=== PATIENT | female | born 1990 | race Two or more races ===

== ENCOUNTER 2018-03-23 00:04 | Emergency (ER) | payer MEDICAID ==
[~2018-03-23] VITALS: Ht 165.1 cm; Wt 75.3 kg
[~2018-03-23 00:04] MED LIST: PREN-129 PO
[2018-03-23 00:29] VITALS: BP 138/84
[2018-03-23 01:35] LABS: Basophils # (auto) 0 uL; Basophils % (auto) 0.2 % (0.0-2.0); Eosinophils # (auto) 0 uL; Eosinophils % (auto) 0.6 % (0.0-7.0); Hematocrit 39.4 % (36.0-46.0); Hemoglobin 13.4 g/dL (12.2-16.2); Lymphocytes # (auto) 1.3 uL; Lymphocytes % (auto) 20.5 % (10.0-50.0); Mean Corpuscular Hemoglobin 31.8 pg (28.0-32.0); Mean Corpuscular Hgb Conc. 34.1 g/dL (32.0-36.0); Mean Corpuscular Volume 93.3 fL (80.0-100.0); Monocytes # (auto) 0.7 uL; Monocytes % (auto) 11.6 % (0.0-12.0); Neutrophils # (auto) 4.2 uL; Neutrophils % (auto) 67.1 % (37.0-80.0); Nucleated Red Blood Cells % 0.1 %; Platelet Count (auto) 132 10^3/uL (140-450); Red Blood Cells 4.22 10^6/uL (4.0-5.20); Red Cell Distribution Width 13.2 % (11.8-14.3); White Blood Cell 6.2 10^3/uL (4.4-10.8)
[2018-03-23 01:35] LABS: Urine Bacteria FEW /hpf (None Seen); Urine Blood Negative /uL (Negative); Urine Mucus FEW (None Seen); Urine WBC 101 /hpf (0 - 5)
[2018-03-23 01:40] LABS: Albumin 2.9 g/dL (3.4-5.0); BUN/Creatinine Ratio 10.2; Calcium 8.8 mg/dL (8.5-10.1)
[2018-03-23 01:43] LABS: Bilirubin, Total 0.2 mg/dL (0.2-1.0); Total Protein 7.3 g/dL (6.4-8.2)
[2018-03-24] MEDS ORDERED: ACET1CAP14 PO (23:13)
== END 2018-03-23 04:39 | disposition left against medical advice (07) ==
LOC: ER 00:13
DX: K64.9 Unspecified hemorrhoids (principal); K62.89 Other specified diseases of anus and rectum; Z53.21 Procedure and treatment not carried out due to patient leaving prior to being seen by health care provider
CPT/HCPCS: 36415; 80053; 81001; 84702; 85025

== ENCOUNTER 2018-03-24 22:35 | Inpatient (IN) | payer MEDICAID ==
[~2018-03-24] VITALS: Ht 167.6 cm; Wt 75.3 kg
[2018-03-24] MEDS ORDERED: ACET1CAP14 PO (23:13)
[2018-03-25] MEDS ORDERED: LACT. RINGERS/OXYTOCIN 20UNITS 1,000 ML IV SCH (00:03)
[2018-03-25] MEDS ORDERED: METHYLERGONOVINE MALEATE 0.2 MG/ML AMP IM PRN (00:15)
[2018-03-25] MEDS ORDERED: PHISODERM TOP SOLN 240ML BTL TOP PRN (00:15)
[2018-03-25] MEDS ORDERED: BETAMETHASONE ACET (6MG/ML) 5ML VIAL IM ONE (00:15)
[2018-03-25] MEDS ORDERED: DERMOPLAST 60ML BOTTLE TOP PRN (00:15)
[2018-03-25] MEDS ORDERED: LIDOCAINE 2% (LOCAL ANESTH.) PF 5ml SDV ID ONE (00:15)
[2018-03-25] MEDS ORDERED: WITCH HAZEL-GLYCERIN PAD TOP PRN (00:15)
[2018-03-25] MEDS ORDERED: NALBUPHINE HCL 10 MG/1ml INJECTION IV PRN (00:15)
[2018-03-25] MEDS ORDERED: AMPICILLIN SOD 2GM INJ 2 GM in SODIUM CHL 0.9% 100 ML IV ONE (00:15)
[2018-03-25] MEDS ORDERED: BETAMETHASONE ACET (6MG/ML) 5ML VIAL ONE (00:27)
[2018-03-25] MEDS ORDERED: GENTAMICIN SULF 80 MG/2 ML VIAL ONE (00:30)
[2018-03-25] MEDS ORDERED: ACETAMINOPHEN 325 MG TAB PO PRN ×2 (00:30→12:00)
[2018-03-25] MEDS ORDERED: GENTAMICIN 80 MG IV ONE (00:30)
[2018-03-25] MEDS: LACTATED RINGER'S 1,000 ML IV SCH ×3 (00:36→16:03)
[2018-03-25] MEDS: AMPICILLIN SOD 1 GM VL ONE ×2 (00:36→01:11)
[2018-03-25 00:51] LABS: Basophils # (auto) 0 uL; Basophils % (auto) 0.2 % (0.0-2.0); Eosinophils # (auto) 0 uL; Eosinophils % (auto) 0.4 % (0.0-7.0); Hematocrit 40.2 % (36.0-46.0); Hemoglobin 13.7 g/dL (12.2-16.2); Lymphocytes # (auto) 1.8 uL; Lymphocytes % (auto) 22.9 % (10.0-50.0); Mean Corpuscular Hemoglobin 31.4 pg (28.0-32.0); Mean Corpuscular Volume 92.4 fL (80.0-100.0); Monocytes # (auto) 0.6 uL; Monocytes % (auto) 7.6 % (0.0-12.0); Neutrophils # (auto) 5.3 uL; Neutrophils % (auto) 68.9 % (37.0-80.0); Platelet Count (auto) 137 10^3/uL (140-450); Red Blood Cells 4.35 10^6/uL (4.0-5.20); White Blood Cell 7.8 10^3/uL (4.4-10.8)
[2018-03-25 00:56] LABS: INR 0.88 (0.9-1.15); Partial Thromboplastin Time 28.4 sec (23.78-33.04); Prothrombin Time 9.5 sec (9.27-12.13)
[2018-03-25 00:59] LABS: Albumin 2.9 g/dL (3.4-5.0); Calcium 9.1 mg/dL (8.5-10.1); Potassium 3.9 mmol/L (3.5-5.1)
[2018-03-25 01:02] LABS: BUN/Creatinine Ratio 12.5
[2018-03-25 01:23] LABS: Bilirubin, Total 0.3 mg/dL (0.2-1.0); Total Protein 7.2 g/dL (6.4-8.2)
[2018-03-25] MEDS: GENTAMICIN SULFATE 80 MG in D5W 5% 100 ML IV SCH ×2 (02:06→10:00)
[2018-03-25 02:16] LABS: Urine Bacteria FEW /hpf (None Seen); Urine Blood Negative /uL (Negative); Urine Mucus FEW (None Seen); Urine Specific Gravity 1.025 (1.001-1.035); Urine WBC 13 /hpf (0 - 5)
[2018-03-25 02:35] LABS: Alcohol, Urine < 3.0 mg/dL (0-5); Amphetamine Screen, Urine NEGATIVE (NEGATIVE); Barbiturate Scree,Urine NEGATIVE (NEGATIVE); Benzodiazephine Screen, Urine NEGATIVE (NEGATIVE); Cannabinoid Screen, Urine NEGATIVE (NEGATIVE); Cocaine Screen, Urine NEGATIVE (NEGATIVE); Opiate Scree,Urine NEGATIVE (NEGATIVE); Phencyclidine Screen, Urine NEGATIVE (NEGATIVE)
[2018-03-25] MEDS: AMPICILLIN INJ 1 GM in SODIUM CHL 0.9% 50 ML IV SCH ×3 (07:00→23:00)
[2018-03-25] MEDS ORDERED: PROMETHAZINE HCL 25 MG/ML 1ML ONE (09:35)
[2018-03-25] MEDS ORDERED: GENTAMICIN 80 MG IV SCH (10:00)
[2018-03-25] MEDS ORDERED: LACT. RINGERS/OXYTOCIN 20UNITS 500 ML IV ONE (11:57)
[2018-03-25 16:00] VITALS: BP 115/65
[2018-03-25] MEDS: IBUPROFEN 600 MG TAB PO PRN ×2 (17:13→22:59)
[2018-03-25 19:27] VITALS: BP 102/54
[2018-03-25 23:10] VITALS: BP 107/63
[2018-03-26] MEDS ORDERED: BETAMETHASONE ACET (6MG/ML) 5ML VIAL IM ONE (00:40)
[2018-03-26 03:01] VITALS: BP 110/56
[2018-03-26 06:06] LABS: RPR Non Reactive (Non Reactive)
[2018-03-26] MEDS: AMPICILLIN INJ 1 GM in SODIUM CHL 0.9% 50 ML IV SCH ×3 (06:10)
[2018-03-26 07:00] VITALS: BP 97/54
[2018-03-26] MEDS: DOCUSATE SOD 100 MG CAP PO SCH ×2 (10:28→22:12)
[2018-03-26 11:00] VITALS: BP 103/53
[2018-03-26 15:00] VITALS: BP 90/53
[2018-03-26 18:56] VITALS: BP 123/65
[2018-03-26 22:40] VITALS: BP 102/51
[2018-03-27 02:40] VITALS: BP 99/53
[2018-03-27 07:14] VITALS: BP 106/55
[2018-03-27 11:00] VITALS: BP_SYST 107; BP_SYST 118; BP_DIAS 61; BP_DIAS 74
[2018-03-27 15:00] VITALS: BP 107/61
== END 2018-03-27 17:10 | disposition home or self-care (01) | DRG 560 ==
LOC: LDRP 22:35 → OBSVTOIN 22:35 → LDRP 03-25 08:29
PROVIDERS: ADMIT Obstetrics & Gynecology; ATTEND Obstetrics & Gynecology
PROC: 10E0XZZ Delivery of Products of Conception, External Approach (ICD-10-PCS; principal; 2018-03-25)
PROC: 0UQMXZZ Repair Vulva, External Approach (ICD-10-PCS; 2018-03-25)
DX: O42.92 Full-term premature rupture of membranes, unspecified as to length of time between rupture and onset of labor (principal); O69.81X0 Labor and delivery complicated by cord around neck, without compression, not applicable or unspecified; Z53.20 Procedure and treatment not carried out because of patient's decision for unspecified reasons; O71.82 Other specified trauma to perineum and vulva; Z37.0 Single live birth; Z3A.37 37 weeks gestation of pregnancy
CPT/HCPCS: 36415; 59025; 59409; 76805; 76818; 80053; 80170; 80307; 81001; 81002; 85025; 85610; 85730; 86592; 86850; 86900; 86901; 96365; 96366; 96372; G0378; J2590; J7060

== ENCOUNTER 2020-01-16 09:13 | Observation (INO) | payer MEDICAID ==
[~2020-01-16 09:13] MED LIST changes: +ACET1CAP14 PO
== END 2020-01-16 10:47 | disposition home or self-care (01) | DRG 861 ==
LOC: LDRP 09:13
PROVIDERS: ADMIT Specialist; ATTEND Specialist
DX: Z34.93 Encounter for supervision of normal pregnancy, unspecified, third trimester (principal); Z3A.37 37 weeks gestation of pregnancy
CPT/HCPCS: 59025; 76818; 81002; G0378

== ENCOUNTER 2020-01-23 10:16 | Observation (INO) | payer MEDICAID ==
[~2020-01-23 10:16] MED LIST changes: -ACET1CAP14 PO
== END 2020-01-23 11:35 | disposition home or self-care (01) | DRG 566 ==
LOC: LDRP 10:16
PROVIDERS: ADMIT Specialist; ATTEND Specialist
DX: O62.9 Abnormality of forces of labor, unspecified (principal); Z3A.38 38 weeks gestation of pregnancy; Z91.19 Patient's noncompliance with other medical treatment and regimen
CPT/HCPCS: 59025; 76818; 81002; G0378

== ENCOUNTER 2020-01-29 08:00 | Inpatient (IN) | payer MEDICAID ==
[~2020-01-29] VITALS: Ht 167.6 cm; Wt 78.9 kg
[2020-01-29 09:13] LABS: Urine Bacteria NONE SEEN /hpf (None Seen); Urine Blood Negative /uL (Negative); Urine Hyaline Cast FEW /lpf (0 - 2); Urine Mucus FEW (None Seen); Urine Specific Gravity 1.027 (1.001-1.035); Urine WBC 1 /hpf (0 - 5)
[2020-01-29] MEDS ORDERED: LACT. RINGERS/OXYTOCIN 20UNITS 1,000 ML IV SCH (09:19)
[2020-01-29] MEDS ORDERED: LACTATED RINGER'S 1,000 ML IV SCH (09:19)
[2020-01-29 09:26] LABS: Alcohol, Urine < 3.0 mg/dL (0-5); Amphetamine Screen, Urine NEGATIVE (NEGATIVE); Barbiturate Scree,Urine NEGATIVE (NEGATIVE); Benzodiazephine Screen, Urine NEGATIVE (NEGATIVE); Cannabinoid Screen, Urine NEGATIVE (NEGATIVE); Cocaine Screen, Urine NEGATIVE (NEGATIVE); Opiate Scree,Urine NEGATIVE (NEGATIVE); Phencyclidine Screen, Urine NEGATIVE (NEGATIVE)
[2020-01-29] MEDS ORDERED: LIDOCAINE 2%HCL (LOCAL ANESTH.) INJ 20ML MDV ID ONE (09:30)
[2020-01-29] MEDS ORDERED: DERMOPLAST 60ML BOTTLE TOP PRN (09:30)
[2020-01-29] MEDS ORDERED: METHYLERGONOVINE MALEATE 0.2 MG/ML AMP IM PRN (09:30)
[2020-01-29] MEDS ORDERED: PHISODERM TOP SOLN 240ML BTL TOP PRN (09:30)
[2020-01-29] MEDS ORDERED: WITCH HAZEL-GLYCERIN PAD TOP PRN (09:30)
[2020-01-29 09:50] LABS: Basophils # (auto) 0 10 ^3/uL (0-0.2); Basophils % (auto) 0.4 % (0.0-2.0); Eosinophils # (auto) 0 10 ^3/uL (0-0.8); Eosinophils % (auto) 0.2 % (0.0-7.0); Hematocrit 39.6 % (36.0-46.0); Hemoglobin 13.4 g/dL (12.2-16.2); Lymphocytes # (auto) 1.3 10 ^3/uL (0.4-5.4); Lymphocytes % (auto) 11.9 % (10.0-50.0); Mean Corpuscular Hemoglobin 31.8 pg (28.0-32.0); Mean Corpuscular Volume 93.5 fL (80.0-100.0); Monocytes # (auto) 0.7 10 ^3/uL (0-1.3); Monocytes % (auto) 6.1 % (0.0-12.0); Neutrophils # (auto) 8.8 10 ^3/uL (1.6-8.6); Neutrophils % (auto) 81.4 % (37.0-80.0); Platelet Count (auto) 125 10^3/uL (140-450); Red Blood Cells 4.23 10^6/uL (4.0-5.20); Red Cell Distribution Width 13.2 % (11.8-14.3); White Blood Cell 10.8 10^3/uL (4.4-10.8)
[2020-01-29 10:08] LABS: Albumin 2.8 g/dL (3.4-5.0); Calcium 8.6 mg/dL (8.5-10.1)
[2020-01-29 10:11] LABS: Bilirubin, Total 0.3 mg/dL (0.2-1.0); Total Protein 6.8 g/dL (6.4-8.2)
[2020-01-29 10:18] LABS: INR 0.94 (0.9-1.15); Partial Thromboplastin Time 29.3 sec (23.64-32.05)
[2020-01-29] MEDS: IBUPROFEN 600 MG TAB PO PRN ×2 (12:52→18:26)
[2020-01-29 13:58] VITALS: BP 118/57
--- NOTE | 2020-01-29 13:58 | NUR ---
Ambulation: Patient OOB with standby assistance by RN. Patient ambulated to bathroom with steady gait. Patient able to void without difficulty, 300ml. [facility]icare teaching provided with returned demonstration by patient. Clean gown provided and bed linen changed. Patient ambulated back to bed with steady gait with no distress noted.
[2020-01-29 15:17] VITALS: BP 125/69
[2020-01-29 19:20] VITALS: BP 124/57
[2020-01-29 23:02] VITALS: BP 114/61
[2020-01-30 03:08] VITALS: BP 114/56
[2020-01-30 04:07] LABS: RPR Non Reactive (Non Reactive)
[2020-01-30 07:16] VITALS: BP 100/54
[2020-01-30 11:00] VITALS: BP 119/59
--- NOTE | 2020-01-30 14:01 | NUR ---
TIME WAS 1350 NOT 0150 Signed: 01/30/20 at 1402 by [facility] <Co-Signature Required> Co-Signed: 01/30/20 at 1402 by Esteban Garcia RN Addendum: 01/30/20 at 1403 by [facility] Amended: Links added.
[2020-01-30 14:12] VITALS: BP 111/68
--- NOTE | 2020-01-30 15:05 | NUR ---
Discharge: Discharge instructions given as ordered. Pt encouraged to follow up with [facility] as instructed. All questions and concerns addressed. Patient verbalized understanding. Medication reconciliation completed and copy given to patient. Patient encouraged to prepare to depart unit. Discharge: Patient taken to vehicle via wheelchair with all personal belongings, accompanied by staff and family member. No distress noted at time of departure, no adverse changes in status since initial assessment.
== END 2020-01-30 15:05 | disposition home or self-care (01) | DRG 560 ==
LOC: LDRP 08:00 → OBSVTOIN 09:10 → LDRP 10:47
PROVIDERS: ADMIT Obstetrics & Gynecology; ATTEND Obstetrics & Gynecology
PROC: 10E0XZZ Delivery of Products of Conception, External Approach (ICD-10-PCS; principal; 2020-01-29)
DX: O80 Encounter for full-term uncomplicated delivery (principal); Z37.0 Single live birth; Z3A.39 39 weeks gestation of pregnancy
CPT/HCPCS: 36415; 59409; 80053; 80307; 81001; 84112; 85025; 85610; 85730; 86592; 86850; 86900; 86901; 96365; 96366; 96372; G0378; J2590

== ENCOUNTER → 2021-05-19 | Outpatient (CLI) | payer MEDICAID ==
[2021-05-20 07:07] LABS: RPR Non Reactive (Non Reactive)
== END | disposition home or self-care (01) ==
LOC: LAB 12:20
PROVIDERS: ATTEND Obstetrics & Gynecology
DX: Z34.80 Encounter for supervision of other normal pregnancy, unspecified trimester (principal); Z3A.00 Weeks of gestation of pregnancy not specified
CPT/HCPCS: 84112; 86592

== ENCOUNTER → 2021-11-03 | Outpatient (CLI) | payer MEDICAID ==
[2021-11-03 11:33] LABS: Basophils # (auto) 0 10 ^3/uL (0-0.2); Basophils % (auto) 0.3 % (0.0-2.0); Eosinophils # (auto) 0.1 10 ^3/uL (0-0.8); Eosinophils % (auto) 0.9 % (0.0-7.0); Hematocrit 37.2 % (36.0-46.0); Lymphocytes # (auto) 1.6 10 ^3/uL (0.4-5.4); Lymphocytes % (auto) 25.2 % (10.0-50.0); Mean Corpuscular Hemoglobin 31.8 pg (28.0-32.0); Mean Corpuscular Hgb Conc. 34.8 g/dL (32.0-36.0); Mean Corpuscular Volume 91.3 fL (80.0-100.0); Monocytes # (auto) 0.3 10 ^3/uL (0-1.3); Monocytes % (auto) 5.5 % (0.0-12.0); Neutrophils # (auto) 4.2 10 ^3/uL (1.6-8.6); Neutrophils % (auto) 68.1 % (37.0-80.0); Nucleated Red Blood Cells % 0.1 %; Red Blood Cells 4.08 10^6/uL (4.0-5.20); Red Cell Distribution Width 12.9 % (11.8-14.3); White Blood Cell 6.2 10^3/uL (4.4-10.8)
[2021-11-04 06:06] LABS: RPR Non Reactive (Non Reactive)
== END | disposition home or self-care (01) ==
LOC: LAB 11:01
PROVIDERS: ATTEND Obstetrics & Gynecology
DX: Z34.80 Encounter for supervision of other normal pregnancy, unspecified trimester (principal)
CPT/HCPCS: 36415; 84112; 85025; 86592

== ENCOUNTER 2021-12-02 11:44 | Observation (INO) | payer MEDICAID | END 2021-12-02 13:03 | disposition home or self-care (01) | LOC: LDRP 11:44 | PROVIDERS: ADMIT Obstetrics & Gynecology; ATTEND Obstetrics & Gynecology | DX: O26.853 Spotting complicating pregnancy, third trimester (principal); O62.9 Abnormality of forces of labor, unspecified; Z3A.39 39 weeks gestation of pregnancy | CPT/HCPCS: 59025; 81002; G0378 ==

== ENCOUNTER 2021-12-03 06:10 | Inpatient (IN) | payer MEDICAID ==
[2021-12-03] VITALS (8 sets, daily range): BP systolic 109–125; BP diastolic 58–66
[~2021-12-03] VITALS: Ht 167.6 cm; Wt 79.8 kg
[2021-12-03] MEDS ORDERED: PROMETHAZINE HCL 25 MG/ML 1ML IV PRN (06:30)
[2021-12-03] MEDS ORDERED: TERBUTALINE SULFATE 1 MG/ML 1ML VIAL SC PRN (06:30)
[2021-12-03] MEDS ORDERED: miSOPROStol 100 mcg TAB SL PRN (06:30)
[2021-12-03] MEDS ORDERED: WITCH HAZEL-GLYCERIN PAD TOP PRN (06:30)
[2021-12-03] MEDS ORDERED: METHYLERGONOVINE MALEATE 0.2 MG/ML AMP IM PRN (06:30)
[2021-12-03] MEDS ORDERED: LACT. RINGERS/OXYTOCIN 20UNITS 1,000 ML IV SCH (06:30)
[2021-12-03] MEDS ORDERED: DERMOPLAST 60ML BOTTLE TOP PRN (06:30)
[2021-12-03] MEDS ORDERED: BUTORPHANOL TARTRATE 2 MG/1 ML VIAL IV PRN ×2 (06:30)
[2021-12-03] MEDS ORDERED: PHISODERM TOP SOLN 240ML BTL TOP PRN (06:30)
[2021-12-03] MEDS ORDERED: LACT. RINGERS/OXYTOCIN 20UNITS 500 ML IV ONE ×2 (06:30→07:00)
[2021-12-03] MEDS ORDERED: LACTATED RINGER'S 1,000 ML IV SCH (06:30)
[2021-12-03] MEDS ORDERED: miSOPROStol 100 mcg TAB PR PRN (06:30)
[2021-12-03] MEDS ORDERED: LIDOCAINE 2%HCL (LOCAL ANESTH.) INJ 20ML MDV IJ PRN (06:30)
[2021-12-03 07:08] LABS: INR 0.94 (0.9-1.15); Partial Thromboplastin Time 29.3 sec (23.6-33.0)
[2021-12-03 07:17] LABS: Basophils # (auto) 0 10 ^3/uL (0-0.2); Basophils % (auto) 0.1 % (0.0-2.0); Eosinophils # (auto) 0 10 ^3/uL (0-0.8); Eosinophils % (auto) 0.1 % (0.0-7.0); Hematocrit 41.2 % (36.0-46.0); Hemoglobin 13.9 g/dL (12.2-16.2); Lymphocytes # (auto) 1.4 10 ^3/uL (0.4-5.4); Lymphocytes % (auto) 15.8 % (10.0-50.0); Mean Corpuscular Hgb Conc. 33.7 g/dL (32.0-36.0); Mean Corpuscular Volume 92.2 fL (80.0-100.0); Monocytes # (auto) 0.3 10 ^3/uL (0-1.3); Monocytes % (auto) 3.1 % (0.0-12.0); Neutrophils % (auto) 80.9 % (37.0-80.0); Nucleated Red Blood Cells % 0.1 %; Red Blood Cells 4.47 10^6/uL (4.0-5.20); Red Cell Distribution Width 13.1 % (11.8-14.3); White Blood Cell 8.7 10^3/uL (4.4-10.8)
[2021-12-03 07:26] LABS: Potassium 3.6 mmol/L (3.5-5.1)
[2021-12-03 07:30] LABS: Urine Bacteria NONE SEEN /hpf (None Seen); Urine Blood TRACE /uL (Negative); Urine Mucus FEW (None Seen); Urine Specific Gravity 1.026 (1.001-1.035); Urine WBC 3 /hpf (0 - 5)
[2021-12-03 07:34] LABS: Bilirubin, Total 0.3 mg/dL (0.2-1.0)
[2021-12-03 07:34] LABS: Amphetamine Screen, Urine NEGATIVE (NEGATIVE); Barbiturate Scree,Urine NEGATIVE (NEGATIVE); Benzodiazephine Screen, Urine NEGATIVE (NEGATIVE); Cannabinoid Screen, Urine NEGATIVE (NEGATIVE); Cocaine Screen, Urine NEGATIVE (NEGATIVE); Opiate Scree,Urine NEGATIVE (NEGATIVE); Phencyclidine Screen, Urine NEGATIVE (NEGATIVE)
[2021-12-03] MEDS ORDERED: ACETAMINOPHEN 325 MG TAB PO PRN (10:15)
[2021-12-03] MEDS ORDERED: ONDANSETRON ODT 4 MG TAB PO PRN (10:15)
[2021-12-03] MEDS: IBUPROFEN 600 MG TAB PO PRN ×2 (10:34→22:05)
[2021-12-03] MEDS ORDERED: IBUPROFEN 800 MG TAB PO SCH (12:00)
[2021-12-04 03:30] VITALS: BP 121/75
[2021-12-04 07:07] LABS: RPR Non Reactive (Non Reactive)
[2021-12-04 11:00] VITALS: BP 114/98
== END 2021-12-04 12:23 | disposition home or self-care (01) | DRG 560 ==
LOC: UNDOADMOB 06:10 → LDRP 06:10 → INTOOBSV 06:20 → OBSVTOIN 06:20 → UNDODISIN 12-04 12:23 → EDSTATUS 01-14 15:16
PROVIDERS: ADMIT Obstetrics & Gynecology; ATTEND Obstetrics & Gynecology
PROC: 10E0XZZ Delivery of Products of Conception, External Approach (ICD-10-PCS; principal; 2021-12-03)
DX: O69.81X0 Labor and delivery complicated by cord around neck, without compression, not applicable or unspecified (principal); Z37.0 Single live birth; Z20.822 Contact with and (suspected) exposure to COVID-19; Z3A.40 40 weeks gestation of pregnancy
CPT/HCPCS: 36415; 59025; 59409; 80053; 80307; 81001; 85025; 85610; 85730; 86592; 86850; 86900; 86901; 94760; 96360; G0378; J2590

== ENCOUNTER → 2023-10-04 | Outpatient (CLI) | payer MEDICAID ==
[2023-10-04 12:14] LABS: Basophils # (auto) 0 10 ^3/uL (0-0.2); Basophils % (auto) 0.1 % (0.0-2.0); Eosinophils # (auto) 0.1 10 ^3/uL (0-0.8); Eosinophils % (auto) 0.9 % (0.0-7.0); Hematocrit 37.9 % (36.0-46.0); Hemoglobin 12.7 g/dL (12.2-16.2); Lymphocytes # (auto) 1.3 10 ^3/uL (0.4-5.4); Mean Corpuscular Hemoglobin 29.8 pg (28.0-32.0); Mean Corpuscular Hgb Conc. 33.4 g/dL (32.0-36.0); Monocytes # (auto) 0.4 10 ^3/uL (0-1.3); Monocytes % (auto) 6.2 % (0.0-12.0); Neutrophils # (auto) 4.3 10 ^3/uL (1.6-8.6); Neutrophils % (auto) 70.8 % (37.0-80.0); Nucleated Red Blood Cells % 0.1 %; Red Blood Cells 4.26 10^6/uL (4.0-5.20); Red Cell Distribution Width 13.1 % (11.8-14.3); White Blood Cell 6.1 10^3/uL (4.4-10.8)
[2023-10-04 13:42] LABS: Amphetamine Screen, Urine Neg (NEGATIVE)
[2023-10-04 13:43] LABS: Barbiturate Scree,Urine Neg (NEGATIVE); Benzodiazephine Screen, Urine Neg (NEGATIVE); Cannabinoid Screen, Urine Neg (NEGATIVE); Cocaine Screen, Urine Neg (NEGATIVE); Opiate Scree,Urine Neg (NEGATIVE); Phencyclidine Screen, Urine Neg (NEGATIVE)
[2023-10-05 07:08] LABS: RPR Non Reactive (Non Reactive)
[2023-10-05 10:07] LABS: Treponema Pallidum Ab LC Non Reactive (Non Reactive)
[2023-10-05 22:06] LABS: Chlamydia Trachomatis, NAA Negative (Negative); Neisseria gonorrhoeae, NAA Negative (Negative)
== END | disposition home or self-care (01) ==
LOC: LAB 11:38
PROVIDERS: ATTEND Obstetrics & Gynecology
DX: Z34.00 Encounter for supervision of normal first pregnancy, unspecified trimester (principal); Z31.430 Encounter of female for testing for genetic disease carrier status for procreative management; Z20.9 Contact with and (suspected) exposure to unspecified communicable disease; N39.0 Urinary tract infection, site not specified; Z3A.00 Weeks of gestation of pregnancy not specified
CPT/HCPCS: 36415; 80307; 83036; 84112; 84144; 84702; 85025; 86592; 86703; 86762; 86850; 86900; 86901; 87086; 87340

== ENCOUNTER → 2023-11-16 | Outpatient (CLI) | payer MEDICAID ==
[2023-11-16 10:33] LABS: Basophils # (auto) 0 10 ^3/uL (0-0.2); Basophils % (auto) 0.2 % (0.0-2.0); Eosinophils # (auto) 0.1 10 ^3/uL (0-0.8); Eosinophils % (auto) 1.7 % (0.0-7.0); Hematocrit 35.4 % (36.0-46.0); Lymphocytes # (auto) 1.7 10 ^3/uL (0.4-5.4); Mean Corpuscular Hemoglobin 30.9 pg (28.0-32.0); Mean Corpuscular Hgb Conc. 33.8 g/dL (32.0-36.0); Mean Corpuscular Volume 91.4 fL (80.0-100.0); Monocytes # (auto) 0.5 10 ^3/uL (0-1.3); Monocytes % (auto) 8.7 % (0.0-12.0); Neutrophils # (auto) 3.7 10 ^3/uL (1.6-8.6); Neutrophils % (auto) 61.4 % (37.0-80.0); Nucleated Red Blood Cells % 0.1 %; Red Blood Cells 3.87 10^6/uL (4.0-5.20); Red Cell Distribution Width 13.4 % (11.8-14.3); White Blood Cell 6.1 10^3/uL (4.4-10.8)
== END | disposition home or self-care (01) ==
LOC: LAB 10:11
PROVIDERS: ATTEND Obstetrics & Gynecology
DX: O99.810 Abnormal glucose complicating pregnancy (principal); Z3A.00 Weeks of gestation of pregnancy not specified
CPT/HCPCS: 36415; 82951; 83036; 85025

== ENCOUNTER 2024-02-21 19:45 | Observation (INO) | payer MEDICAID ==
[2024-02-21] MEDS ORDERED: CEPH250C PO (20:57)
== END 2024-02-21 21:21 | disposition home or self-care (01) ==
LOC: LDRP 19:45
PROVIDERS: ADMIT Obstetrics & Gynecology; ATTEND Obstetrics & Gynecology
DX: O23.43 Unspecified infection of urinary tract in pregnancy, third trimester (principal); O40.3XX0 Polyhydramnios, third trimester, not applicable or unspecified; Z3A.37 37 weeks gestation of pregnancy
CPT/HCPCS: 59025; 76818; 81002; 94760; G0378

== ENCOUNTER 2024-02-29 08:20 | Observation (INO) | payer MEDICAID ==
[~2024-02-29] VITALS: Ht 167.6 cm; Wt 88.0 kg
[~2024-02-29 08:20] MED LIST changes: +CEPH250C PO
== END 2024-02-29 09:59 | disposition home or self-care (01) ==
LOC: LDRP 08:20 → UNDOADMOB 08:20 → LDRP 08:22 → UNDODISOB 09:59
PROVIDERS: ADMIT Obstetrics & Gynecology; ATTEND Obstetrics & Gynecology
DX: O40.3XX0 Polyhydramnios, third trimester, not applicable or unspecified (principal); Z3A.38 38 weeks gestation of pregnancy
CPT/HCPCS: 59025; 76818; 81002; 94760; G0378

== ENCOUNTER 2024-03-03 08:14 | Observation (INO) | payer MEDICAID | END 2024-03-03 10:28 | disposition home or self-care (01) | LOC: LDRP 08:14 | PROVIDERS: ADMIT Obstetrics & Gynecology; ATTEND Obstetrics & Gynecology | DX: O40.3XX0 Polyhydramnios, third trimester, not applicable or unspecified (principal); Z3A.39 39 weeks gestation of pregnancy | CPT/HCPCS: 59025; 76818; 81002; 94760; G0378 ==

== ENCOUNTER 2024-03-04 22:10 | Inpatient (IN) | payer MEDICAID ==
[~2024-03-04] VITALS: Ht 167.6 cm; Wt 88.0 kg
[2024-03-04] MEDS ORDERED: LIDOCAINE 2%HCL (LOCAL ANESTH.) INJ 20ML MDV IJ PRN (22:15)
[2024-03-04] MEDS ORDERED: BUTORPHANOL TARTRATE 2 MG/1 ML VIAL IV PRN (22:15)
[2024-03-04 22:36] LABS: Urine Bacteria None Seen /hpf (None Seen); Urine WBC None Seen /hpf (0 - 5)
[2024-03-04 22:47] LABS: Urine Blood Negative /uL (Negative); Urine Clarity Clear (Clear); Urine Color Yellow (Yellow); Urine Protein, UAD TRACE (Negative); Urine Specific Gravity 1.028 (1.001-1.035); Urine Urobilinogen 2 mg/dL (Negative)
[2024-03-04 22:49] LABS: Basophils # (auto) 0 10 ^3/uL (0-0.2); Basophils % (auto) 0.3 % (0.0-2.0); Eosinophils # (auto) 0.1 10 ^3/uL (0-0.8); Eosinophils % (auto) 0.9 % (0.0-7.0); Hematocrit 40.5 % (36.0-46.0); Hemoglobin 13.6 g/dL (12.2-16.2); Lymphocytes # (auto) 2.4 10 ^3/uL (0.4-5.4); Lymphocytes % (auto) 34.7 % (10.0-50.0); Mean Corpuscular Hemoglobin 31.3 pg (28.0-32.0); Mean Corpuscular Hgb Conc. 33.5 g/dL (32.0-36.0); Mean Corpuscular Volume 93.5 fL (80.0-100.0); Monocytes # (auto) 0.6 10 ^3/uL (0-1.3); Monocytes % (auto) 8.6 % (0.0-12.0); Neutrophils # (auto) 3.9 10 ^3/uL (1.6-8.6); Neutrophils % (auto) 55.5 % (37.0-80.0); Nucleated Red Blood Cells % 0.2 %; Red Blood Cells 4.34 10^6/uL (4.0-5.20); Red Cell Distribution Width 13.5 % (11.8-14.3)
[2024-03-04 23:04] LABS: Albumin 3.9 g/dL (3.2-4.8); Alkaline Phosphatase 144 U/L (46-116); Anion Gap 8 (5-15); Aspartate Aminotransferase 19 U/L (13-40); BUN/Creatinine Ratio 7.7 (10.0-20.0); Blood Urea Nitrogen 5 mg/dL (9-23); Calcium 9.4 mg/dL (8.5-10.1); Carbon Dioxide 24 mmol/L (20-30); Chloride 106 mmol/L (98-107); Glucose 87 mg/dL (74-106); Potassium 3.5 mmol/L (3.5-5.1); Sodium 138 mmol/L (136-145)
[2024-03-04 23:05] LABS: Bilirubin, Total 0.4 mg/dL (0.2-1.0); Total Protein 6.6 g/dL (5.7-8.2)
[2024-03-04 23:08] LABS: Alanine Aminotransferase < 9 U/L (7-40)
[2024-03-04 23:09] LABS: INR 0.94 (0.9-1.15); Partial Thromboplastin Time 27.2 SEC (24.5-34.5)
[2024-03-04] MEDS: LACTATED RINGER'S 1,000 ML IV SCH (23:11)
[2024-03-04 23:19] LABS: Amphetamine Screen, Urine Neg (NEGATIVE); Barbiturate Scree,Urine Neg (NEGATIVE); Benzodiazephine Screen, Urine Neg (NEGATIVE); Cocaine Screen, Urine Neg (NEGATIVE); Opiate Scree,Urine Neg (NEGATIVE); Phencyclidine Screen, Urine Neg (NEGATIVE)
[2024-03-04 23:34] LABS: Giant Platelets Few; Platelet Estimate Decreased
[2024-03-04 23:56] LABS: Cannabinoid Screen, Urine Neg (NEGATIVE)
[2024-03-05] MEDS: CARBOPROST TROMETHAMINE 250 MCG/1ML VIAL IM ONE (04:15)
[2024-03-05] MEDS ORDERED: DIPHENOXYLATE W/ATROPINE 2.5 MG TAB PO PRN (04:15)
[2024-03-05] MEDS: miSOPROStol 50 MCG per PRE-CUT 1/2 TAB PO PRN (04:35)
[2024-03-05] MEDS: DERMOPLAST 60ML BOTTLE TOP PRN (08:39)
[2024-03-05] MEDS: WITCH HAZEL-GLYCERIN PAD TOP PRN (08:39)
[2024-03-05] MEDS: PHISODERM TOP SOLN 240ML BTL TOP PRN (08:40)
[2024-03-05] MEDS ORDERED: TERBUTALINE SULFATE 1 MG/ML 1ML VIAL SC PRN (19:30)
[2024-03-05] MEDS: LACT. RINGERS/OXYTOCIN 20UNITS 1,000 ML IV SCH (20:21)
[2024-03-06] MEDS: BUTORPHANOL TARTRATE 2 MG/1 ML VIAL IV PRN (03:39)
[2024-03-06] MEDS: LACT. RINGERS/OXYTOCIN 20UNITS 500 ML IV ONE ×4 (06:05→07:00)
[2024-03-06] MEDS: METHYLERGONOVINE MALEATE 0.2 MG/ML AMP IM ONE ×2 (06:06→06:30)
[2024-03-06] MEDS ORDERED: ACETAMINOPHEN 325 MG TAB PO PRN (06:15)
[2024-03-06] MEDS ORDERED: ONDANSETRON ODT 4 MG TAB PO PRN (06:30)
[2024-03-06] MEDS: IBUPROFEN 600 MG TAB PO PRN (07:31)
[2024-03-06 11:22] VITALS: BP 115/62; PULSE 93; RESP 18; TEMP 97.9; O2SAT 95
[2024-03-06] MEDS ORDERED: IBUPROFEN 800 MG TAB PO SCH (12:00)
[2024-03-06] MEDS: ACETAMINOPHEN 325 MG TAB PO PRN (13:22)
[2024-03-06 14:43] VITALS: BP 97/51; PULSE 91; RESP 18; TEMP 98; O2SAT 97
[2024-03-06 19:30] VITALS: BP 114/58; PULSE 103; RESP 18; TEMP 97.8; O2SAT 98
[2024-03-06] MEDS: DOCUSATE SOD 100 MG CAP PO SCH (21:53)
[2024-03-06] MEDS ORDERED: IBU600T PO (22:44)
[2024-03-06] MEDS ORDERED: DOCU-265 PO (22:44)
[2024-03-06] MEDS ORDERED: PREN-129 PO (22:44)
[2024-03-06 23:00] VITALS: BP 116/64; PULSE 110; RESP 20; TEMP 97.8; O2SAT 97
[2024-03-07 03:00] VITALS: BP 91/55; PULSE 86; RESP 16; TEMP 98.8; O2SAT 97
[2024-03-07 04:06] LABS: RPR Non Reactive (Non Reactive)
[2024-03-07 07:00] VITALS: BP 100/52; PULSE 96; RESP 16; TEMP 97.6; O2SAT 97
[2024-03-07 07:45] LABS: Basophils # (auto) 0 10 ^3/uL (0-0.2); Basophils % (auto) 0.3 % (0.0-2.0); Eosinophils # (auto) 0.1 10 ^3/uL (0-0.8); Eosinophils % (auto) 0.7 % (0.0-7.0); Hematocrit 30.2 % (36.0-46.0); Lymphocytes # (auto) 2.5 10 ^3/uL (0.4-5.4); Lymphocytes % (auto) 27.7 % (10.0-50.0); Mean Corpuscular Hgb Conc. 33.2 g/dL (32.0-36.0); Mean Corpuscular Volume 93.3 fL (80.0-100.0); Monocytes # (auto) 0.8 10 ^3/uL (0-1.3); Monocytes % (auto) 9.4 % (0.0-12.0); Neutrophils # (auto) 5.6 10 ^3/uL (1.6-8.6); Neutrophils % (auto) 61.9 % (37.0-80.0); Red Blood Cells 3.23 10^6/uL (4.0-5.20); Red Cell Distribution Width 13.5 % (11.8-14.3)
[2024-03-08 18:06] LABS: Treponema pallidum Ab (FTA-Ab) Non Reactive (Non Reactive)
== END 2024-03-07 11:04 | disposition home or self-care (01) | DRG 560 ==
LOC: LDRP 22:10
PROVIDERS: ADMIT Obstetrics & Gynecology; ATTEND Obstetrics & Gynecology
PROC: 3E0DXGC Introduction of Other Therapeutic Substance into Mouth and Pharynx, External Approach (ICD-10-PCS; 2024-03-05)
PROC: 10E0XZZ Delivery of Products of Conception, External Approach (ICD-10-PCS; principal; 2024-03-06)
DX: O40.3XX0 Polyhydramnios, third trimester, not applicable or unspecified (principal); Z37.0 Single live birth; O69.1XX0 Labor and delivery complicated by cord around neck, with compression, not applicable or unspecified; O76 Abnormality in fetal heart rate and rhythm complicating labor and delivery; Z3A.39 39 weeks gestation of pregnancy
CPT/HCPCS: 36415; 59025; 59409; 76818; 80053; 80307; 81001; 85025; 85610; 85730; 86592; 86850; 86900; 86901; 94760; 96360; 96361; 96365; 96366; 96372; 96374; G0378; J2590